=== PATIENT | female | born 1995 | race Caucasian/White ===

== ENCOUNTER 2022-02-03 12:52 | Emergency (ER) | payer OTHER ==
[2022-02-03 13:22] VITALS: BP 137/91; PULSE 96; RESP 18; TEMP 99.4; BMI 25.0
[2022-02-03] MEDS ORDERED: ONDANSETRON 4 MG/2 ML VIAL IVPUSH ONE (13:37)
[2022-02-03] MEDS ORDERED: ACETAMINOPHEN 325 MG TABLET (FP) PO ONE (13:37)
[2022-02-03] MEDS ORDERED: ACETAMINOPHEN 325 MG TABLET (FP) ONE (13:46)
[2022-02-03] MEDS ORDERED: ONDANSETRON 4 MG/2 ML VIAL ONE (13:47)
[2022-02-03 14:26] LABS: HEMATOCRIT 39.9 % (32.4-45.2); HEMOGLOBIN 14.2 G/dL (10.7-15.3); INR 0.97 (0.83-1.09); MCH 32.2 pg (25.7-33.7); MCHC 35.6 g/dl (32.0-36.0); MEAN CELL VOLUME 90.5 fl (80-96); MEAN PLT VOLUME 9.2 fl (7.5-11.1); PLATELET COUNT 269.2 10^3/uL (134-434); PROTHROMBIN TIME (PATIENT) 11.2 SEC (9.7-13.0); RBC 4.41 10^6/uL (3.60-5.2); RDW 13.2 % (11.6-15.6); WHITE BLOOD COUNT 7.7 10^3/uL (4.0-10.8)
[2022-02-03 14:29] LABS: ACTIVATED PTT 31.3 SECONDS (25.2-36.5)
[2022-02-03 14:34] LABS: ALBUMIN 3.9 g/dl (3.4-5.0); BILIRUBIN,TOTAL 0.4 mg/dl (0.2-1); CALCIUM 9.4 mg/dl (8.5-10); CREATININE 0.5 mg/dl (0.55-1.3); TOT PROT 7.6 g/dl (6.4-8.2)
[2022-02-03 14:43] LABS: EPITHELIAL CELLS FEW /hpf
[2022-02-03] MEDS ORDERED: SODIUM CHLORIDE 0.9% 1000 ML INFUS.BAG IV ONE (15:04)
[2022-02-03 15:27] LABS: PLATELET ESTIMATE ADEQUATE
== END 2022-02-03 17:05 | disposition home or self-care (01) ==
LOC: FER 12:52
PROC: 3E033GC Introduction of Other Therapeutic Substance into Peripheral Vein, Percutaneous Approach (ICD-10-PCS; principal; 2022-02-03)
DX: J02.9 Acute pharyngitis, unspecified (principal); R07.9 Chest pain, unspecified
CPT/HCPCS: 0241U-QW; 36415; 71046-TC-FY; 80053; 81003; 81015; 85027; 85379; 85610; 85730; 93005; 99285-25

== ENCOUNTER 2022-03-16 14:03 | Emergency (ER) | payer OTHER ==
[2022-03-16 14:16] VITALS: BP 144/80; PULSE 79; RESP 16; TEMP 98.8; BMI 25.0
== END 2022-03-16 16:16 | disposition home or self-care (01) ==
LOC: FER 14:03
DX: J45.20 Mild intermittent asthma, uncomplicated (principal)
CPT/HCPCS: 0241U-QW; 71046-TC-FY; 99284-25